=== PATIENT | male | born 1980 | race Caucasian/White ===

== ENCOUNTER 2023-09-22 08:41 | Emergency (ER) | payer OTHER, SELFPAY ==
--- NOTE | ~2023-09-22 | XR_ITS ---
EXAMINATION: XR knee LT 3V DATE: 09/22/2023 09:20 INDICATION: Medial left knee pain. TECHNIQUE: 3 views of left knee including standing views were obtained. COMPARISON: None. FINDINGS: There is chronic fragmentation of lateral patella. No acute fracture. There is mild tricomp artmental osteoarthritis. There is a small knee joint effusion. IMPRESSION: 1. Mild left knee osteoarthritis. 2. Small left knee joint effusion. 3. Chronic fragmentation of lateral patella, which may be a normal variant or old fracture. Reviewed, dictated and finalized at [facility] IMPRESSION: 1. Mild left knee osteoarthritis. 2. Small left knee joint effusion. 3. Chronic fragmentation of lateral patella, which may be a normal variant or o ld fracture.
[2023-09-22 08:56] VITALS: BP 123/87; PULSE 76; RESP 16; TEMP 35.6; O2SAT 99
--- NOTE | 2023-09-22 09:11 | ED.LOWEXIN ---
HPI - Extremity Injury (Lower) General Chief Complaint: Extremity Injury, Lower Stated Complaint: L KNEE PAIN Time Seen by Provider: 09/22/23 08:58 Source: patient and RN notes reviewed Mode of arrival: ambulatory Limitations: no limitations History of Present Illness HPI Narrative: Patient presents today complaining of left medial knee pain times 3-4 months that increases with twisting. Yesterday he jerked his knee while working, which increased his knee pain. Currently rates pain 5/10 and has been taking Advil with mild relief. He has an appointment for follow-up on October 04, but with the increase in his his pain yesterday he wanted to come in for evaluation today. Related Data Allergies Allergy/AdvReac Type Severity Reaction Status Date / Time Penicillins Allergy Mild Rash Verified 09/22/23 08:51 Review of Systems Review of Systems: CONSTITUTIONAL: Denies body aches, fever, chills, or sweats. EYES: Denies visual changes, redness, or discharge. ENT: Denies rhinorrhea, congestion, sore throat, or otalgia. CARDIOVASCULAR: Denies chest pain, palpitations, or edema. RESPIRATORY: Denies cough or dyspnea. GASTROINTESTINAL: Denies abdominal pain, nausea, vomiting, or diarrhea. GENITOURINARY: Denies dysuria or hematuria. SKIN: Denies rash, itching, or wounds. MUSCULOSKELETAL: Denies back pain, or myalgia.+ left knee pain NEUROLOGIC: Denies headache, numbness, tingling, or weakness. PSYCH: Denies depression or anxiety. PMFSH Comments At time of signature, I have reviewed and agree with nursing past medical, surgical, social and family history unless otherwise noted. Please see nursing chart for further information. There is no relevant family history pertinent to the presenting complaint Exam Narrative: GENERAL: Well-appearing, well-nourished, and in no acute distress. HEAD: Normocephalic, atraumatic. EYES: EOMI. No redness or drainage. Conjunctivae normal. ENT: Mucous membranes pink and moist. NECK: Normal AROM. CHEST: No respiratory distress. EXTREMITIES: Left knee: Tenderness to the medial knee. No edema, erythema, or ecchymosis noted. No tenderness to the patella or laterally. No abnormal movement of the patella. No tenderness to the patellar tendon. Distal sensation intact. Capillary refill normal. Full range of motion of the knee with pain with internal and external rotation. SKIN: Warm, dry, no rash. Capillary refill normal. Normal skin turgor. NEURO: No focal deficits. Alert and oriented x3. Gait steady. PSYCH: Normal affect. No signs of depression or anxiety. Course Course Level of Care: Express Care Visit Vital Signs Vital signs: Vital Signs Temperature 96.1 F L 09/22/23 08:56 Pulse Rate 76 09/22/23 08:56 Respiratory Rate 16 09/22/23 08:56 Blood Pressure 123/87 09/22/23 08:56 Pulse Oximetry 99 09/22/23 08:56 Temperature 96.1 F L 09/22/23 08:56 Pulse Rate 76 09/22/23 08:56 Respiratory Rate 16 09/22/23 08:56 Blood Pressure 123/87 09/22/23 08:56 Pulse Oximetry 99 09/22/23 08:56 Reviewed MDM - Extremity Injury (Lower) MDM Narrative Medical decision making narrative: Patient's x-ray shows mild osteoarthritis, mild joint effusion, and chronic fragmentation of the patella. Patient states he has had no traumatic injury of the patella in the past, so likely normal variant. Instructed patient to rest the knee. Will prescribe some diclofenac to see if this is helpful for his pain until his follow-up appointment. Anticipatory guidance given. Differential Diagnosis Differential diagnosis: Likely other (Knee strain, ligamentous injury, meniscus injury) Imaging Data Radiologist's impression: ITS Impressions Knee X-Ray 09/22/23 09:24 IMPRESSION: 1. Mild left knee osteoarthritis. 2. Small left knee joint effusion. 3. Chronic fragmentation of lateral patella, which may be a normal variant or old fracture. Critical Care Time C
== END 2023-09-22 09:47 | disposition home or self-care (01) ==
PROVIDERS: Emergency Provider Nurse Practitioner
DX: M25.562 Pain in left knee (principal)
CPT/HCPCS: 73562; 99203; G0463

== ENCOUNTER 2023-12-06 09:53 | Outpatient (CLI) | payer OTHER, SELFPAY ==
--- NOTE | ~2023-12-06 | MR_ITS ---
MRI of the left knee Clinical history: Pain Technique: Coronal proton density and proton density-weighted images, sagittal proton-density and T2 fat-sat images, and axial proton-density fat-saturated images were acquired. Findings: Anterior and posterior cruciate ligaments are intact. Medial collateral ligament and the la teral collateral ligament complex are intact. Popliteus tendon is intact. Lateral meniscus is intact, without evidence of tear. Suspected subtle horizontal tear of the body se gment of the medial meniscus. Articular cartilage is well preserved in the medial and lateral compartment. There is moderate chondr al malacia the femoral trochlea centrally. Patellar articular cartilage is well preserved. Bipartite patella noted. Extensor mechanism is intact. No significant joint effusion or Connors's cyst. Impression: Suspected subtle horizontal tear of the body segment of the medial meniscus. 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 Reviewed, dictated and finalized at [facility]. Impression: Suspected subtle horizontal tear of the body segment of the medial meniscus. 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
== END 2023-12-06 09:54 ==
LOC: GOSHIMG 09:56
PROVIDERS: PCP Internal Medicine; Visit Provider Nurse Practitioner
DX: M25.562 Pain in left knee (principal); Q74.1 Congenital malformation of knee
CPT/HCPCS: 73721